=== PATIENT | female | born 1960 | race Caucasian/White ===

== ENCOUNTER 2024-01-14 17:57 | Observation (INO) | payer BC ==
[2024-01-14 18:14] VITALS: RESP 19; TEMP 97.9; BMI 33.3
[2024-01-14 19:32] LABS: BASO % 0.8 % (0-2.0); EOS % 2.3 % (0-4.5); HEMATOCRIT 36.4 % (32.4-45.2); HEMOGLOBIN 12.5 GM/dL (10.7-15.3); LYMPH % 33.2 % (8-40); MCH 30.7 pg (25.7-33.7); MCHC 34.4 g/dl (32.0-36.0); MEAN CELL VOLUME 89.4 fl (80-96); MEAN PLT VOLUME 7.5 fl (7.5-11.1); MONO % 14.6 % (3.8-10.2); NEUT % 49.1 % (42.8-82.8); PLATELET COUNT 330 10^3/uL (134-434); RBC 4.07 M/mm3 (3.60-5.2); WHITE BLOOD COUNT 4.8 K/mm3 (4.0-10.0)
[2024-01-14 19:59] LABS: POTASSIUM 3.8 mmol/L (3.5-5.1)
[2024-01-14 20:01] LABS: CALCIUM 9.5 mg/dL (8.5-10.1)
[2024-01-14 20:02] LABS: ALBUMIN 3.7 g/dl (3.4-5.0)
[2024-01-14 20:05] LABS: CREATININE 0.7 mg/dL (0.55-1.3)
[2024-01-14 20:07] LABS: BILIRUBIN,TOTAL 0.2 mg/dL (0.2-1)
[2024-01-14 20:10] LABS: N-TERMINAL BNP 76.9 pg/ml (5-125)
[2024-01-15] MEDS ORDERED: FUROSEMIDE 40 MG/4 ML INJECTABLE VIAL ONE (00:01)
[2024-01-15] MEDS: FUROSEMIDE 40 MG/4 ML INJECTABLE VIAL IVPUSH ONE (00:25)
[2024-01-15 00:58] VITALS: BP 134/72; PULSE 80
== END 2024-01-15 01:26 | disposition home or self-care (01) ==
LOC: JER 17:57 → JERBED 20:58
PROVIDERS: ADMIT Internal Medicine; ATTEND Internal Medicine
PROC: 3E033GC Introduction of Other Therapeutic Substance into Peripheral Vein, Percutaneous Approach (ICD-10-PCS; principal; 2024-01-14)
DX: U07.1 COVID-19 (principal); R07.9 Chest pain, unspecified; R06.00 Dyspnea, unspecified; I10 Essential (primary) hypertension; R94.31 Abnormal electrocardiogram [ECG] [EKG]
CPT/HCPCS: 0241U-QW; 36415; 71045-TC-FY; 80053; 83880; 84484; 85025; 85379; 93005; 93010; 96374; 99285-25; G0378